=== PATIENT | male | born 1955 | race Caucasian/White ===

== ENCOUNTER 2018-07-04 13:08 | Emergency (ER) | payer MEDICAID ==
[~2018-07-04] VITALS: Ht 177.8 cm; Wt 117.9 kg
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
[2018-07-04] MEDS ORDERED: TDAP [DIPH/PERTUSSIS/TET] 0.5 ML VIAL IM ONE ×2 (14:27→14:30)
--- NOTE | 2018-07-04 15:25 | NUR ---
SPOKE TO DEMETRIUS ON PT'S CELL PHONE. LAPSasha WANTED THE DR'S NAME AND RECORD NUMBER. OK'D TO GIVE INFO BY MD AND PT.
--- NOTE | 2018-07-04 15:35 | NUR ---
WOUND CARE DONE
--- NOTE | 2018-07-04 15:40 | NUR ---
Patient discharged to home in stable condition. Written and verbal after care instructions given. Patient verbalizes understanding of instruction AND RX. PT AMBULATED OUT WITH A STEADY GAIT. VSS. COPY OF CT FINDINGS GIVEN.
[2018-07-04 15:47] VITALS: BP 138/78
== END 2018-07-04 15:48 | disposition home or self-care (01) ==
LOC: ER 13:13
DX: S01.112A Laceration without foreign body of left eyelid and periocular area, initial encounter (principal); I10 Essential (primary) hypertension; Y04.0XXA Assault by unarmed brawl or fight, initial encounter; Y93.89 Activity, other specified; Y92.89 Other specified places as the place of occurrence of the external cause; Y99.8 Other external cause status
CPT/HCPCS: 12013; 70486; 90471; 90715; 99284; A4606; A6402

== ENCOUNTER 2018-07-09 13:23 | Emergency (ER) | payer MEDICAID ==
[~2018-07-09] VITALS: Ht 177.8 cm; Wt 113.4 kg
--- NOTE | 2018-07-09 13:48 | NUR ---
Patient discharged to home in stable condition. Written and verbal after care instructions given. Patient verbalizes understanding of instruction.
[2018-07-09 13:52] VITALS: BP 126/75
== END 2018-07-09 13:54 | disposition home or self-care (01) ==
LOC: ER 13:24
DX: S01.112D Laceration without foreign body of left eyelid and periocular area, subsequent encounter (principal); I10 Essential (primary) hypertension; Y92.89 Other specified places as the place of occurrence of the external cause
CPT/HCPCS: 99281; A4606; Z7502

== ENCOUNTER 2019-09-28 18:33 | Emergency (ER) | payer MEDICAID ==
[~2019-09-28] VITALS: Ht 177.8 cm; Wt 117.0 kg
--- NOTE | 2019-09-28 19:07 | NUR ---
BIBFAMILY FROM HOME TO ER BED 7. AAOX4. NOT IN RESP DISTRESS. AMBULATORY. CAME IN FOR FEVER, HEADACHE, SINUS PRESSURE AND CONGESTION AND POOR APPETITE X 3DAYS. PT REPORTS HIS HEADACHE AT THE FRONTAL OF THE HEAD. TEMP NOTED AT 103. AWAITING MD FOR EVAL.
[2019-09-28 19:53] LABS: BASOPHILS % (AUTO) 0.3 % (0.0-2.0); EOSINOPHILS % (AUTO) 0.2 % (0.0-6.0); HEMATOCRIT 42 % (39-51); HEMOGLOBIN 14.2 g/dL (13.5-17.5); LYMPHOCYTES # (AUTO) 0.7 /CMM (0.8-4.8); LYMPHOCYTES % (AUTO) 22.5 % (20.0-44.0); MEAN CORPUSCULAR HGB CONC 34 g/dl (31.0-36.0); MEAN CORPUSCULAR VOLUME 88 fL (80-96); MONOCYTES # (AUTO) 0.4 /CMM (0.1-1.30); MONOCYTES % (AUTO) 13.9 % (2.0-12.0); NEUTROPHILS # (AUTO) 1.9 /CMM (1.8-8.9); NEUTROPHILS % (AUTO) 63.1 % (43.0-81.0); PLATELET COUNT (AUTO) 147 /CMM (150-450); RED BLOOD CELL COUNT(AUTO) 4.74 MIL/uL (4.5-6.0)
[2019-09-28 20:00] LABS: APPEARANCE,URINE Clear (CLEAR); BILIRUBIN,URINE Negative (NEGATIVE); BLOOD, URINE Trace-intact Ery/uL (NEGATIVE); COLOR,URINE Yellow (YELLOW); KETONES,URINE 15 (NEGATIVE); LEUKOCYTE ESTERASE ,URINE Negative (NEGATIVE); NITRITE, URINE Negative (NEGATIVE); PH,URINE 5.5 (5.0-8.0); PROTEIN,URINE Trace mg/dl (NEGATIVE); UGLUCOSE Negative (NEGATIVE)
[2019-09-28 20:06] LABS: BACTERIA,URINE Rare /HPF (None Seen); SQUAMOUS EPITHELIAL CELL,UR Few /HPF (None Seen); WBC,URINE NONE SEEN /HPF (0-3)
[2019-09-28 20:13] LABS: CALCIUM, SERUM 8.5 mg/dL (8.5-10.1); CREATININE 1.2 mg/dL (0.6-1.3); POTASSIUM 3.9 mmol/L (3.5-5.1)
[2019-09-28 20:19] LABS: ALBUMIN 3.6 g/dL (3.4-5.0); BILIRUBIN,DIRECT 0.2 mg/dL (0.0-0.2); BILIRUBIN,TOTAL 0.8 mg/dL (0.2-1.0); TOTAL PROTEIN, SERUM 7.5 g/dL (6.4-8.2)
[2019-09-28 20:58] VITALS: BP 132/97
[2019-09-28] MEDS ORDERED: ACETAMINOPHEN 325 MG TABLET ONE (21:00)
--- NOTE | 2019-09-28 21:08 | NUR ---
Patient discharged to home in stable condition. Written and verbal after care instructions given. Patient verbalizes understanding of instruction. IV removed. Catheter intact and site benign. Pressure and 4x4 applied to site. No bleeding noted.
--- NOTE | 2019-09-28 21:10 | NUR ---
pt received tylenol 650mg po x 1 dose. d/t patient noted w/ temp of 100.2. md ordered tylenol but unable to leatha medication d/t pt was already d/c in the system.
[2019-09-28] MEDS ORDERED: ACETAMINOPHEN 325 MG TABLET PO ONE (21:30)
== END 2019-09-28 21:09 | disposition home or self-care (01) ==
LOC: ER 18:41
DX: B34.9 Viral infection, unspecified (principal); R50.9 Fever, unspecified; I44.4 Left anterior fascicular block; I10 Essential (primary) hypertension; Z20.828 Contact with and (suspected) exposure to other viral communicable diseases
CPT/HCPCS: 36415; 71045-TC; 80048-TC; 80076-TC; 81000-TC; 85025-TC; 87086-TC

== ENCOUNTER 2021-03-07 19:29 | Emergency (ER) | payer MEDICAID, OTHER ==
[~2021-03-07] VITALS: Ht 177.8 cm; Wt 97.5 kg
--- NOTE | 2021-03-07 20:00 | NUR ---
BIBWIFE C/O WEAK AND FEVER X3 DAYS. TOOK TYLENOL @3PM TODAY. PT ALERT AND ORIENTED X3. AMBULATORY WITH NON LABORED BREATHING.
--- NOTE | 2021-03-07 21:17 | NUR ---
BLOOD TAKEN AND SENT TO LAB
[2021-03-07 21:29] LABS: PLATELET COUNT (AUTO) 198 K/uL (150-450); WHITE BLOOD COUNT (AUTO) 4.3 K/uL (4.3-11.0)
[2021-03-07] MEDS ORDERED: IV NS 0.9% 500 ML BAG IV ONE (21:30)
[2021-03-07 21:34] LABS: BASOPHILS % (AUTO) 0.6 % (0.0-2.0); HEMATOCRIT 36 % (39-51); HEMOGLOBIN 12.1 g/dL (13.5-17.5); LYMPHOCYTES # (AUTO) 0.8 K/uL (0.8-4.8); LYMPHOCYTES % (AUTO) 18.7 % (20.0-44.0); MEAN CORPUSCULAR HGB CONC 34 g/dl (31.0-36.0); MEAN CORPUSCULAR VOLUME 85 fL (80-96); MONOCYTES # (AUTO) 0.3 K/uL (0.1-1.30); MONOCYTES % (AUTO) 7.1 % (2.0-12.0); NEUTROPHILS # (AUTO) 3.1 K/uL (1.8-8.9); NEUTROPHILS % (AUTO) 73.6 % (43.0-81.0); RED BLOOD CELL COUNT(AUTO) 4.23 MIL/uL (4.5-6.0)
[2021-03-07 21:40] LABS: CARBON DIOXIDE 24 mmol/L (21-32); CHLORIDE 101 mmol/L (98-107); CREATININE 1.1 mg/dL (0.6-1.3); GLUCOSE 106 mg/dL (74-106); POTASSIUM 3.8 mmol/L (3.5-5.1); SODIUM SERUM 134 mmol/L (136-145); UREA NITROGEN, BLOOD 13 mg/dL (7-18)
[2021-03-07 21:42] LABS: BILIRUBIN,URINE NEGATIVE (NEGATIVE); COLOR,URINE YELLOW (YELLOW); LEUKOCYTE ESTERASE ,URINE NEGATIVE (NEGATIVE); NITRITE, URINE NEGATIVE (NEGATIVE); PROTEIN,URINE 30 mg/dl (NEGATIVE); UGLUCOSE NEGATIVE (NEGATIVE)
[2021-03-07 21:49] LABS: BACTERIA,URINE None seen /HPF (None Seen); MUCUS,URINE Few /LPF (None Seen); SQUAMOUS EPITHELIAL CELL,UR 0-2 /HPF (None Seen); WBC,URINE 0-2 /HPF (0-3)
[2021-03-07 21:55] LABS: ALANINE AMINOTRANSFERASE 20 U/L (12-78); ALBUMIN 2.9 g/dL (3.4-5.0); ALKALINE PHOSPHATASE 82 U/L (46-116); ASPARTATE AMINOTRANSFERASE 18 U/L (15-37); BILIRUBIN,DIRECT 0.2 mg/dL (0.0-0.2); BILIRUBIN,TOTAL 0.8 mg/dL (0.2-1.0); LIPASE 71 U/L (73-393)
[2021-03-07] MEDS ORDERED: IV NS 0.9% 250 ML IV ONE (23:12)
[2021-03-07] MEDS ORDERED: IOHEXOL-300 100 ML VIAL IV ONE (23:12)
--- NOTE | 2021-03-07 23:25 | NUR ---
PT TO CT VIA WHEELCHAIR.
[2021-03-08 01:29] VITALS: BP 138/80
--- NOTE | 2021-03-08 01:29 | NUR ---
Patient discharged to home in stable condition. Written and verbal after care instructions given. Patient verbalizes understanding of instruction.
== END 2021-03-08 01:30 | disposition home or self-care (01) ==
LOC: ER 19:31
DX: C18.7 Malignant neoplasm of sigmoid colon (principal); I11.0 Hypertensive heart disease with heart failure; I50.9 Heart failure, unspecified; R94.31 Abnormal electrocardiogram [ECG] [EKG]; R50.9 Fever, unspecified; Z20.822 Contact with and (suspected) exposure to COVID-19
CPT/HCPCS: 36415; 71045; 74177; 80048; 80076; 81001; 83690; 83880; 84484; 85025; 87086; 87426; 93005; 96360; 99285; C9803; J7030; J7050; Q9967

== ENCOUNTER 2021-03-12 21:27 | Emergency (ER) | payer OTHER ==
--- NOTE | 2021-03-12 21:33 | NUR ---
PATIENT REFUSES TO BE SEEN AND TRIAGED. STATES, "THAT'S OKAY, I WILL GO HOME".
== END 2021-03-12 23:31 | disposition home or self-care (01) ==
LOC: ER 21:41
DX: Z53.21 Procedure and treatment not carried out due to patient leaving prior to being seen by health care provider (principal)

== ENCOUNTER 2022-09-19 17:55 | Inpatient (IN) | payer MEDICARE, OTHER ==
[~2022-09-19] VITALS: Ht 177.8 cm; Wt 105.2 kg
--- NOTE | 2022-09-19 18:30 | NUR ---
BIB C/O DIFFUSE ABDOMINAL PAIN, NAUSEA, DIARRHEA SINCE LAST NIGHT
--- NOTE | 2022-09-19 18:42 | NUR ---
BLOOD SAMPLE OBTAINED SENT TO LAB
--- NOTE | 2022-09-19 18:42 | NUR ---
ESTABLISHED IV LINE 18 G AT RIGHT AC
--- NOTE | 2022-09-19 18:48 | NUR ---
URINE SAMPLE OBTAINED SENT TO LAB
[2022-09-19] MEDS ORDERED: ONDANSETRON HCL/PF 4 MG/2 ML VIAL ONE (18:57)
[2022-09-19] MEDS ORDERED: MORPHINE SULFATE INJ 4 MG/ML DISP.SYRIN ONE (18:57)
[2022-09-19] MEDS ORDERED: MORPHINE SULFATE INJ 2 MG/ML DISP.SYRIN IV ONE (19:00)
[2022-09-19] MEDS ORDERED: ONDANSETRON HCL/PF 4 MG/2 ML VIAL IVP ONE (19:00)
[2022-09-19 19:01] LABS: BASOPHILS % (AUTO) 1.8 % (0.0-2.0); EOSINOPHILS % (AUTO) 4.9 % (0.0-6.0); HEMATOCRIT 36 % (39-51); HEMOGLOBIN 11.7 g/dL (13.5-17.5); LYMPHOCYTES # (AUTO) 0.7 K/uL (0.8-4.8); LYMPHOCYTES % (AUTO) 30.7 % (20.0-44.0); MEAN CORPUSCULAR HGB CONC 32 g/dl (31.0-36.0); MEAN CORPUSCULAR VOLUME 84 fL (80-96); NEUTROPHILS # (AUTO) 1.4 K/uL (1.8-8.9); NEUTROPHILS % (AUTO) 60.6 % (43.0-81.0); PLATELET COUNT (AUTO) 178 K/uL (150-450); RED BLOOD CELL COUNT(AUTO) 4.33 MIL/uL (4.5-6.0); WHITE BLOOD COUNT (AUTO) 2.3 K/uL (4.3-11.0)
--- NOTE | 2022-09-19 19:02 | NUR ---
PATIENT REFUSED THE MORPHINE AND ZOFRAN. MADE AWARE
[2022-09-19 19:23] LABS: CALCIUM, SERUM 8.6 mg/dL (8.5-10.1); CREATININE 1.2 mg/dL (0.6-1.3)
[2022-09-19 19:26] LABS: ALBUMIN 3.3 g/dL (3.4-5.0); BILIRUBIN,DIRECT 0.2 mg/dL (0.0-0.2); BILIRUBIN,TOTAL 1.1 mg/dL (0.2-1.0); TOTAL PROTEIN, SERUM 7.3 g/dL (6.4-8.2)
[2022-09-19] MEDS ORDERED: IV NS 0.9% 250 ML IV ONE (19:54)
[2022-09-19] MEDS ORDERED: CT SWABBABLE VALVE TRANS SET 1 EA INFUS.SET MC ONE (19:54)
[2022-09-19] MEDS ORDERED: IOHEXOL-300 100 ML VIAL IV ONE (19:54)
[2022-09-19 19:58] LABS: BILIRUBIN,URINE NEGATIVE (NEGATIVE); COLOR,URINE YELLOW (YELLOW); LEUKOCYTE ESTERASE ,URINE TRACE (NEGATIVE); NITRITE, URINE NEGATIVE (NEGATIVE); PROTEIN,URINE 1+ mg/dl (NEGATIVE); UGLUCOSE NEGATIVE (NEGATIVE); UROBILINOGEN,URINE 0.2 EU/dL (0.2)
[2022-09-19] MEDS ORDERED: POTASSIUM CHLORIDE 20 MEQ TAB.PRT.SR PO ONE (20:00)
--- NOTE | 2022-09-19 20:00 | NUR ---
PT TAKEN TO CT
[2022-09-19 20:07] LABS: BACTERIA,URINE 1+ /HPF (None Seen); RBC,URINE 0-2 /HPF (0-2)
[2022-09-19 20:08] LABS: MUCUS,URINE Few /LPF (None Seen)
[2022-09-19 21:28] LABS: BASOPHILS % (MANUAL) 2 % (0.0-2.0); EOSINOPHILS % (MANUAL) 6 % (0-4); LYMPHOCYTES % (MANUAL) 22 % (16-48); MONOCYTES % (MANUAL) 2 % (0-11.0); NEUTROPHILS % (MANUAL) 68 (42-76)
--- NOTE | 2022-09-19 21:55 | NUR ---
DR TIWARI PAGED PER DR CLEMENTE.
--- NOTE | 2022-09-19 22:24 | NUR ---
COVID AND MRSA SWAB COLLECTED, SENT TO LAB
--- NOTE | 2022-09-19 23:06 | NUR ---
NG TUBE 16FR INSERTED TO R NARE, PLACEMENT VERIFIED BY ASPIRATION AND AUSCULTATION WITH SORAIDA RN, CONNECTED TO LOW INTERMITTENT SUCTION PER MD ORDERS.
--- NOTE | 2022-09-19 23:35 | NUR ---
REPORT GIVEN TO MARISSA CHANEY FOR JUNG
[2022-09-19] MEDS ORDERED: TAMS-12 PO (23:43)
[2022-09-19] MEDS ORDERED: AMLO2.5T4 PO (23:43)
[2022-09-20] MEDS ORDERED: Z GUARD REMEDY 4 OZ OINT TP PRN
[2022-09-20] MEDS ORDERED: MORPHINE SULFATE INJ 2 MG/ML DISP.SYRIN IV PRN
[2022-09-20] MEDS ORDERED: ACETAMINOPHEN 650 MG/SUPP.RECT RC PRN
[2022-09-20] MEDS ORDERED: IV D5/0.45 NACL 1,000 ML IV PRN
[2022-09-20] MEDS ORDERED: ONDANSETRON HCL/PF 4 MG/2 ML VIAL IVP PRN
[2022-09-20 00:12] VITALS: BP 152/97
--- NOTE | 2022-09-20 00:12 | NUR ---
PT TRANSFERRED, NAD
--- NOTE | 2022-09-20 01:51 | NUR ---
MS TEACHER OF THE DEAF/HARD OF HEARING NOTES; RECEIVED PATIENT FROM ER VIA RNEY AWAKE, ACCOMPANIED BY , PLACED COMFORTABLY IN BED, BED IN LOW POSITION CALL LIGHTS WITHIN REACH, NO COMPLAIN OF PAIN AND DISCOMFORT AT THIS TIME, ON ROOM AIR SATURATING WELL, PATIENT ON NGT CONNECTED TO LOW INTERMITTENT SUCTION, IV LINE RAC#18 WITH ONGOING DS5 1/2 NSS @75ML/HR INFUSING WELL, SKIN IS INTACT, NO SKIN ISSUES WAS OBSERVED, INVENTORIES WAS DOCUMENTED AND SIGNED ORIENTED TO ROOM REMIND TO USE CALL LIGHTS WHEN NEEDED ASSISTANCE, PATIENT ON NPO FOR XR OF SMALL BOWEL FOLLOW TROUGH IN AM, PATIENT KEPT CLEAN AND DRY ALL NEEDS MET WILL CONTINEU TO MONITOR.
[2022-09-20 05:58] LABS: BASOPHILS % (AUTO) 1.1 % (0.0-2.0); EOSINOPHILS % (AUTO) 7.7 % (0.0-6.0); HEMATOCRIT 35 % (39-51); HEMOGLOBIN 11.2 g/dL (13.5-17.5); LYMPHOCYTES # (AUTO) 0.7 K/uL (0.8-4.8); MEAN CORPUSCULAR HGB CONC 32 g/dl (31.0-36.0); MEAN CORPUSCULAR VOLUME 85 fL (80-96); MONOCYTES # (AUTO) 0.1 K/uL (0.1-1.30); MONOCYTES % (AUTO) 5.5 % (2.0-12.0); NEUTROPHILS # (AUTO) 1.4 K/uL (1.8-8.9); NEUTROPHILS % (AUTO) 57.7 % (43.0-81.0); PLATELET COUNT (AUTO) 148 K/uL (150-450); RED BLOOD CELL COUNT(AUTO) 4.11 MIL/uL (4.5-6.0); WHITE BLOOD COUNT (AUTO) 2.5 K/uL (4.3-11.0)
[2022-09-20 06:30] LABS: CALCIUM, SERUM 8.3 mg/dL (8.5-10.1); CREATININE 0.9 mg/dL (0.6-1.3); MAGNESIUM 2.2 mg/dL (1.8-2.4); PHOSPHORUS 2.9 mg/dL (2.5-4.9); POTASSIUM 3.6 mmol/L (3.5-5.1)
--- NOTE | 2022-09-20 06:59 | NUR ---
MS RN CLOSING NOTES: PATIENT SLEEP IN BED COMFORTABLY, AROUSABLE TO VERBAL STIMULI, BED IN LOW POSITION CALL LIGHTS WITHIN REACH, NO COMPLAIN OF PAIN AND DISCOMFORT AT THIS TIME, ON ROOM AIR SATURATING WELL, PATIENT IS A/O X4 AMERICAN SPEAKING ABLE TO MAKE NEEDS KNOWN, IV LINE AT RAC#20 WITH ONGOING D5 [id number] INFUSING WELL, ON NG TUBE CONNECTED TO LOW INTERMITTENT SUCTION, NPO, WITH XR OF SMALL BOWEL TROUGH TODAY, PATIENT KEPT CLEAN AND DRY ALL NEEDS MET ENDORSE TO INCOMING SHIFT.
--- NOTE | 2022-09-20 07:50 | NUR ---
MS RN OPENING NOTE Patient in bed, awake. A/O x 4, Niuean speaking. On room air, no SOB or s/s of distress noted. IV access on RAC #18 infusing D5 1/2 NS at 75 ml/hr. NGT to LIS noted. Patient kept NPO. Safety precautions in place: bed in low, locked position; siderails up x 3; call light within reach. Will continue to monitor.
[2022-09-20] MEDS: PANTOPRAZOLE 40 MG VIAL IV SCH (08:30)
[2022-09-20 09:19] VITALS: BP 132/93
[2022-09-20] MEDS ORDERED: DIATR MEGLU/DIATRIZOATE SODIUM 120 ML BOTTLE (GASTROGRAPHIN) ONE ×2 (10:06)
[2022-09-20] MEDS ORDERED: GABA300C PO (10:23)
[2022-09-20] MEDS ORDERED: LORA10TA7 PO (10:23)
[2022-09-20] MEDS ORDERED: ACET-73 PO (10:23)
[2022-09-20] MEDS ORDERED: MAGN400T52 PO (10:23)
[2022-09-20] MEDS ORDERED: DICL100G34 TD (10:23)
[2022-09-20] MEDS ORDERED: FLUT16SP16 (10:23)
[2022-09-20 16:01] VITALS: BP 141/104
--- NOTE | 2022-09-20 17:30 | NUR ---
RN NOTE Per Paramjit Cole NP, remove NGT ad start on clear liquids diet. NGT removed. Will continue to monitor patient.
--- NOTE | 2022-09-20 18:50 | NUR ---
MS RN CLOSING NOTE Patient in bed, resting. A/O x 4, Cymraes speaking. Stable on room air, no SOB or s/s of distress noted. IV access on RAC #18 , refusing IV fluids at this time. Patient states "I don't need it". All needs attended to. Due meds given. Safety precautions in place: bed in low, locked position; siderails up x 3; call light within reach. Will endorse to special forces specialist nurse for JUNG.
[2022-09-20 20:00] VITALS: BP 136/92
--- NOTE | 2022-09-20 20:04 | NUR ---
MS RN OPENING NOTE PATIENT AWAKE IN BED, ALERT/ORIENTED X 3, PT ISRAELI SPEAKING BUT STILL ABLE TO MAKE NEEDS KNOWN IN [place]AB[place]. PATIENT DENIES PAIN AT THIS TIME. PATIENT STABLE ON RA, NO S/S OF DISTRESS OR SOB NOTED, BREATHING EVEN AND UNLABORED. IV ACCESS ON RAC #18G INTACT AND SALINE LOCKED. PATIENT CONTINUES TO REFUSE IVF, ENCOURAGED TO DRINK FLUIDS, PT VERBALIZED UNDERSTANDING. SAFETY MEASURES IN PLACE: CALL LIGHT WITHIN REACH, SIDE RAILS UP X 2, HOB ELEVATED. WILL CONTINUE TO MONITOR PATIENT
--- NOTE | 2022-09-21 06:32 | NUR ---
MS RN CLOSING NOTE PATIENT SLEEPING IN BED, ALERT/ORIENTED X 3, PT CYMRAES SPEAKING BUT STILL ABLE TO MAKE NEEDS KNOWN IN [place]. PATIENT DENIES PAIN AT THIS TIME. PATIENT STABLE ON RA, NO S/S OF DISTRESS OR SOB NOTED, BREATHING EVEN AND UNLABORED. IV ACCESS ON RAC #18G INTACT AND SALINE LOCKED. PATIENT CONTINUES TO REFUSE IVF, ENCOURAGED TO DRINK FLUIDS, PT VERBALIZED UNDERSTANDING. NO SIGNIFICANT CHANGES THIS SHIFT, PT SLEPT WELL THROUGH THE NIGHT, PT NEEDS MET. SAFETY MEASURES IN PLACE: CALL LIGHT WITHIN REACH, SIDE RAILS UP X 2, HOB ELEVATED. WILL ENDORSE TO DAYSHIFT RN FOR CONTINUITY OF CARE
--- NOTE | 2022-09-21 07:20 | NUR ---
RN OPENING NOTE RECEIVED PATIENT IN BED, AWAKE, A/O X4, VERBALLY RESPONSIVE AND ABLE TO MAKE NEEDS KNOWN. NO SIGNS OF ACUTE DISTRESS NOTED.. ON ROOM AIR, NO SOB NOTED, BREATHING EVEN AND UNLABORED. DENIES ANY PAIN OR DISCOMFORT AT HIS TIME. NOTED WITH IV ACCESS ON RIGHT AC # 18G, INTACT AND PATENT. PATIENT REFUSED TO BE ATTACHED TO IV FLUID AT THIS TIME. SAFETY MEASURE IN PLACE. BED IN LOW AND LOCKED POSITION, SIDE RAILS UP X2, CALL LIGHT PLACED WITHIN EASY REACH. WILL CONTINUE TO MONITOR PATIENT.
[2022-09-21] MEDS: PANTOPRAZOLE 40 MG VIAL IV SCH (08:22)
[2022-09-21 09:09] VITALS: BP 129/79
[2022-09-21 16:17] VITALS: BP 135/95
--- NOTE | 2022-09-21 16:20 | NUR ---
LABOR AND DELIVERY NURSE NOTE PATIENT DISCHARGED HOME IN STABLE CONDITION. PATIENT ABLE TO TOLERATE SOFT DIET, NO C/O NAUSEA OR VOMITING. DENIES ANY ABDOMINAL PAIN. IV ACCESS REMOVED. NO BLEEDING NOTED, PRESSURE DRESSING APPLIED TO SITE. ARM NAME BAND RECEIVED. ALL BELONGINGS ACCOUNTED FOR. FORM SIGNED BY PATIENT. EXIT CARE FOLDER GIVEN TO PATIENT. DISCHARGE INSTRUCTIONS AND HEALTH TEACHINGS PROVIDED TO PATIENT WITH VERBALIZATION OF UNDERSTANDING. PATIENT LEFT UNIT @1615. ACCOMPANIED PATIENT TO [facility], AMBULATORY. PATIENT PICKED-UP BY VIA PRIVATE CAR.
== END 2022-09-21 16:15 | disposition home or self-care (01) | DRG 389 ==
LOC: ER 18:11 → MED 23:13
PROVIDERS: ADMIT Nurse Practitioner Family; ATTEND Nurse Practitioner Acute Care
DX: K56.609 Unspecified intestinal obstruction, unspecified as to partial versus complete obstruction (principal); C18.9 Malignant neoplasm of colon, unspecified; N13.30 Unspecified hydronephrosis; E44.1 Mild protein-calorie malnutrition; Z20.822 Contact with and (suspected) exposure to COVID-19; Z90.49 Acquired absence of other specified parts of digestive tract; I10 Essential (primary) hypertension; Z92.21 Personal history of antineoplastic chemotherapy; K40.90 Unilateral inguinal hernia, without obstruction or gangrene, not specified as recurrent; E88.09 Other disorders of plasma-protein metabolism, not elsewhere classified; K74.60 Unspecified cirrhosis of liver; D72.819 Decreased white blood cell count, unspecified; D64.9 Anemia, unspecified; E87.6 Hypokalemia; K80.20 Calculus of gallbladder without cholecystitis without obstruction; N40.0 Benign prostatic hyperplasia without lower urinary tract symptoms; Z79.899 Other long term (current) drug therapy; R73.9 Hyperglycemia, unspecified; R91.8 Other nonspecific abnormal finding of lung field
CPT/HCPCS: 36415; 71045-TC; 74250-TC; 80048-TC; 80076-TC; 81001; 83690-TC; 83735-TC; 84100-TC; 85025-TC; 85730-TC; 87081-TC; A4223; C9113; G0378; J2270; J2405; J3490; J7050; Q9963; Q9967

== ENCOUNTER 2024-05-05 17:03 | Inpatient (IN) | payer MEDICARE, OTHER ==
[~2024-05-05] VITALS: Ht 177.8 cm; Wt 105.8 kg
[~2024-05-05 17:03] MED LIST: ACET-73 PO; AMLO2.5T4 PO; DICL100G34 TD; FLUT16SP16; GABA300C PO; LORA10TA7 PO; MAGN400T52 PO; TAMS-12 PO
[2024-05-05 22:33] LABS: BASOPHILS % (AUTO) 0.6 % (0.0-2.0); EOSINOPHILS # (AUTO) 0.1 K/uL (0.0-0.7); EOSINOPHILS % (AUTO) 2.1 % (0.0-6.0); HEMATOCRIT 39 % (39-51); HEMOGLOBIN 12.9 g/dL (13.5-17.5); LYMPHOCYTES # (AUTO) 1.2 K/uL (0.8-4.8); LYMPHOCYTES % (AUTO) 22.4 % (20.0-44.0); MEAN CORPUSCULAR HEMOGLOBIN 28 PG (26.0-33.0); MEAN CORPUSCULAR HGB CONC 33 g/dl (31.0-36.0); MEAN CORPUSCULAR VOLUME 84 fL (80-96); MONOCYTES # (AUTO) 0.5 K/uL (0.1-1.30); MONOCYTES % (AUTO) 8.8 % (2.0-12.0); NEUTROPHILS # (AUTO) 3.6 K/uL (1.8-8.9); NEUTROPHILS % (AUTO) 66.1 % (43.0-81.0); PLATELET COUNT (AUTO) 215 K/uL (150-450); RED BLOOD CELL COUNT(AUTO) 4.65 MIL/uL (4.5-6.0); RED CELL DISTRIBUTION WIDTH 20.1 % (11.5-15.0); WHITE BLOOD COUNT (AUTO) 5.4 K/uL (4.3-11.0)
[2024-05-05 22:59] LABS: CALCIUM, SERUM 9.1 mg/dL (8.5-10.1); CARBON DIOXIDE 26 mmol/L (21-32); CHLORIDE 107 mmol/L (98-107); CREATININE 1.1 mg/dL (0.6-1.3); GLUCOSE 94 mg/dL (74-106); POTASSIUM 3.8 mmol/L (3.5-5.1); SODIUM SERUM 143 mmol/L (136-145); UREA NITROGEN, BLOOD 13 mg/dL (7-18)
[2024-05-05] MEDS ORDERED: CT SWABBABLE VALVE TRANS SET 1 EA INFUS.SET MC ONE (23:04)
[2024-05-05] MEDS ORDERED: IOHEXOL-350 100 ML VIAL IV ONE (23:04)
[2024-05-05] MEDS ORDERED: IV NS 0.9% 250 ML IV ONE (23:04)
[2024-05-05 23:05] LABS: INR 1.17 (0.91-1.10); PROTHROMBIN TIME 12.3 SECS (9.2-11.1)
[2024-05-06] MEDS ORDERED: ACETAMINOPHEN 325 MG TABLET PO PRN (01:00)
[2024-05-06] MEDS ORDERED: Z GUARD REMEDY 4 OZ OINT TP PRN (01:00)
[2024-05-06] MEDS: IV NS 0.9% 1,000 ML BAG IV ONE (01:00)
[2024-05-06] MEDS ORDERED: MAG HYDROX/AL HYDROX/SIMETH 30 ML UDC PO PRN (01:00)
[2024-05-06] MEDS ORDERED: ZOLPIDEM TARTRATE 5 MG TABLET PO PRN (01:00)
[2024-05-06] MEDS: CEFTRIAXONE 1GM BAG (ER ONLY) 50 ML IV ONE (01:00)
[2024-05-06] MEDS ORDERED: ONDANSETRON HCL/PF 4 MG/2 ML VIAL IVP PRN (01:00)
[2024-05-06] MEDS ORDERED: MAGNESIUM HYDROXIDE 30 ML UDC PO PRN (01:00)
[2024-05-06] MEDS ORDERED: CEFTRIAXONE 1GM BAG (ER ONLY) 50 ML IV ONE ×2 (01:04→12:48)
[2024-05-06 01:28] LABS: INR 1.17 (0.91-1.10); PARTIAL THROMBOPLASTIN TIME 27.9 SEC (24.3-34.3); PROTHROMBIN TIME 12.3 SECS (9.2-11.1)
[2024-05-06] MEDS: PANTOPRAZOLE 40 MG TABLET.DR PO SCH (07:30)
[2024-05-06 09:59] LABS: BASOPHILS % (AUTO) 0.6 % (0.0-2.0); EOSINOPHILS # (AUTO) 0.1 K/uL (0.0-0.7); EOSINOPHILS % (AUTO) 2.4 % (0.0-6.0); HEMATOCRIT 37 % (39-51); HEMOGLOBIN 12.2 g/dL (13.5-17.5); LYMPHOCYTES # (AUTO) 0.8 K/uL (0.8-4.8); LYMPHOCYTES % (AUTO) 16.4 % (20.0-44.0); MEAN CORPUSCULAR HEMOGLOBIN 28 PG (26.0-33.0); MEAN CORPUSCULAR HGB CONC 33 g/dl (31.0-36.0); MEAN CORPUSCULAR VOLUME 84 fL (80-96); MONOCYTES # (AUTO) 0.4 K/uL (0.1-1.30); MONOCYTES % (AUTO) 8.3 % (2.0-12.0); NEUTROPHILS # (AUTO) 3.6 K/uL (1.8-8.9); NEUTROPHILS % (AUTO) 72.3 % (43.0-81.0); PLATELET COUNT (AUTO) 203 K/uL (150-450); RED BLOOD CELL COUNT(AUTO) 4.43 MIL/uL (4.5-6.0); RED CELL DISTRIBUTION WIDTH 20.2 % (11.5-15.0); WHITE BLOOD COUNT (AUTO) 4.9 K/uL (4.3-11.0)
[2024-05-06 10:14] LABS: CARBON DIOXIDE 26 mmol/L (21-32); CHLORIDE 109 mmol/L (98-107); CREATININE 1.1 mg/dL (0.6-1.3); GLUCOSE 120 mg/dL (74-106); MAGNESIUM 1.8 mg/dL (1.8-2.4); PHOSPHORUS 3.2 mg/dL (2.5-4.9); POTASSIUM 3.4 mmol/L (3.5-5.1); SODIUM SERUM 142 mmol/L (136-145); UREA NITROGEN, BLOOD 13 mg/dL (7-18)
[2024-05-06] MEDS ORDERED: CETI10TA14 PO (12:07)
[2024-05-06 20:00] VITALS: BP 145/90; TEMP 98.4; O2SAT 93
[2024-05-06 20:13] VITALS: BP 141/96; TEMP 98.4
[2024-05-06 22:14] VITALS: BP 145/90; TEMP 98.4; O2SAT 93
[2024-05-07] VITALS: BP 153/95; TEMP 98; O2SAT 95
[2024-05-07 01:03] VITALS: O2SAT 92
[2024-05-07] MEDS: ALBUTEROL FS 2.5 MG/3 ML VIAL.NEB NEB PRN (01:09)
[2024-05-07 01:13] VITALS: O2SAT 98
[2024-05-07] MEDS: CEFTRIAXONE 1 G in IV D5W 50 ML IV SCH (01:13)
[2024-05-07] MEDS ORDERED: cetrizine 10 MG TABLET PO PRN (01:30)
[2024-05-07] MEDS ORDERED: FLUTICASONE PROPIONATE 16 GM BOTTLE NS PRN (01:30)
[2024-05-07 04:00] VITALS: BP 148/104; TEMP 98.1; O2SAT 95
[2024-05-07 06:20] LABS: BASOPHILS % (AUTO) 0.4 % (0.0-2.0); EOSINOPHILS # (AUTO) 0.1 K/uL (0.0-0.7); EOSINOPHILS % (AUTO) 2.5 % (0.0-6.0); HEMATOCRIT 37 % (39-51); HEMOGLOBIN 12.3 g/dL (13.5-17.5); LYMPHOCYTES % (AUTO) 20.1 % (20.0-44.0); MEAN CORPUSCULAR HEMOGLOBIN 28 PG (26.0-33.0); MEAN CORPUSCULAR HGB CONC 34 g/dl (31.0-36.0); MEAN CORPUSCULAR VOLUME 84 fL (80-96); MONOCYTES # (AUTO) 0.4 K/uL (0.1-1.30); MONOCYTES % (AUTO) 7.8 % (2.0-12.0); NEUTROPHILS # (AUTO) 3.3 K/uL (1.8-8.9); NEUTROPHILS % (AUTO) 69.2 % (43.0-81.0); PLATELET COUNT (AUTO) 194 K/uL (150-450); RED BLOOD CELL COUNT(AUTO) 4.34 MIL/uL (4.5-6.0); RED CELL DISTRIBUTION WIDTH 20.1 % (11.5-15.0); WHITE BLOOD COUNT (AUTO) 4.8 K/uL (4.3-11.0)
[2024-05-07 07:02] LABS: CALCIUM, SERUM 8.7 mg/dL (8.5-10.1); CREATININE 0.8 mg/dL (0.6-1.3); PHOSPHORUS 3.7 mg/dL (2.5-4.9); POTASSIUM 3.2 mmol/L (3.5-5.1)
[2024-05-07] MEDS: TAMSULOSIN 0.4 MG CAP.SR.24H PO SCH (09:48)
[2024-05-07] MEDS: POTASSIUM CHLORIDE 20 MEQ TAB.PRT.SR PO SCH (09:49)
[2024-05-07] MEDS: AMLODIPINE BESYLATE 2.5 MG TABLET PO SCH (09:49)
[2024-05-07 20:00] VITALS: BP 133/98; TEMP 98.1; O2SAT 95
[2024-05-08] VITALS: BP 152/98; TEMP 98.2; O2SAT 93
[2024-05-08 04:00] VITALS: BP 121/94; TEMP 98.2; O2SAT 95
[2024-05-08 08:26] VITALS: BP 140/96; TEMP 98.2; O2SAT 94
[2024-05-08 09:05] VITALS: BP 140/96
[2024-05-08] MEDS ORDERED: LEVO750T46 PO (14:42)
[2024-05-08 16:03] LABS: PROTEIN, BODY FLUID 5.7 G/DL
[2024-05-08 21:54] LABS: APPEARANCE,SPUN,BODY FLUID HAZY (CLEAR)
[2024-05-08 21:55] LABS: TOTAL VOLUME,BODY FLUID 1500 mL
[2024-05-08 22:02] LABS: MACROPHAGES, BODY FLUID 27
[2024-05-08 22:03] LABS: MONOCYTES,BODY FLUID 1 %; POLYNUCLEAR, BODY FLUID 7 % (0-25)
== END 2024-05-08 15:30 | disposition home health service (06) | DRG 193 ==
LOC: ER 17:07 → TRANSITION 05-06 05:55 → TELE 05-06 14:15 → MED 05-08 11:30
PROVIDERS: ADMIT Nurse Practitioner Family; ATTEND Internal Medicine
PROC: 0W9B3ZX Drainage of Left Pleural Cavity, Percutaneous Approach, Diagnostic (ICD-10-PCS; principal; 2024-05-08)
DX: J15.9 Unspecified bacterial pneumonia (principal); J96.01 Acute respiratory failure with hypoxia; C78.02 Secondary malignant neoplasm of left lung; J90 Pleural effusion, not elsewhere classified; E66.9 Obesity, unspecified; D63.8 Anemia in other chronic diseases classified elsewhere; N40.0 Benign prostatic hyperplasia without lower urinary tract symptoms; Z85.038 Personal history of other malignant neoplasm of large intestine; I10 Essential (primary) hypertension; Z20.822 Contact with and (suspected) exposure to COVID-19; Z68.33 Body mass index [BMI] 33.0-33.9, adult; R79.1 Abnormal coagulation profile; Z79.899 Other long term (current) drug therapy; Z87.891 Personal history of nicotine dependence; G47.33 Obstructive sleep apnea (adult) (pediatric); Z90.49 Acquired absence of other specified parts of digestive tract
CPT/HCPCS: 36415; 71045-TC; 80048-TC; 83605-TC; 83735-TC; 83880; 84100-TC; 84484-TC; 85025-TC; 85378-TC; 85610-TC; 85730-TC; 87040-TC; 87102-TC; 89051-TC; 93971-TC; 94761-TC; A4223; G0378; J0696; J7030; J7040; J7050; J7060; Q9967